=== PATIENT | female | born 1970 | race Hispanic/Latino ===

== ENCOUNTER 2021-05-22 11:02 | Emergency (ER) | payer MEDICAID, OTHER ==
[~2021-05-22] VITALS: Ht 165.1 cm; Wt 83.9 kg
[2021-05-22] MEDS: HYDROMORPHONE 0.5 MG SYG (0.5MG/0.5ML) IVP STA (13:29)
[2021-05-22] MEDS: FENTANYL 50 MCG/HR PATCH TD STA (13:29)
[2021-05-22 13:46] VITALS: BP 136/86
== END 2021-05-22 13:49 | disposition home or self-care (01) ==
LOC: EDH 11:02
DX: M48.061 Spinal stenosis, lumbar region without neurogenic claudication (principal); G89.18 Other acute postprocedural pain; M54.5 Low back pain; Z98.890 Other specified postprocedural states
CPT/HCPCS: 96374; 99283; J1170